=== PATIENT | female | born 1995 | race Caucasian/White ===

== ENCOUNTER → 2019-10-14 | Outpatient (CLI) | payer BC | END | disposition home or self-care (01) | LOC: LAB SHORT 14:45 → LAB 14:45 | DX: R30.0 Dysuria (principal) | CPT/HCPCS: 87077; 87086; 87186 ==

== ENCOUNTER → 2019-10-23 | Outpatient (CLI) | payer BC | END | disposition home or self-care (01) | LOC: LAB 12:05 → LAB SHORT 12:05 | PROVIDERS: Family Medicine | DX: Z34.01 Encounter for supervision of normal first pregnancy, first trimester (principal); Z3A.11 11 weeks gestation of pregnancy | CPT/HCPCS: G0123 ==

== ENCOUNTER → 2020-02-24 | Outpatient (CLI) | payer BC, OTHER ==
[2020-02-24 14:12] LABS: BASOPHILS ABSOLUTE AUTO 0.14 K/mm3 (0.00-0.23); BASOPHILS PERCENT AUTO 1 % (0-2); EOSINOPHILS ABSOLUTE AUTO 0.17 K/mm3 (0.00-0.68); EOSINOPHILS PERCENT AUTO 1 % (0-6); Hematocrit 36.2 % (33.0-51.0); IMMATURE GRAN ABSOLUTE AUTO 0.27 K/mm3 (0.00-0.10); IMMATURE GRAN PERCENT AUTO 2 % (0-1); LYMPHOCYTES ABSOLUTE AUTO 2.96 K/mm3 (0.84-5.20); LYMPHOCYTES PERCENT AUTO 17 % (21-46); MONOCYTES ABSOLUTE AUTO 0.93 K/mm3 (0.16-1.47); MONOCYTES PERCENT AUTO 5 % (4-13); Mean Corpuscular HGB Conc 33.1 g/dL (31.5-36.5); Mean Corpuscular Volume 94 fL (80-100); Mean Platelet Volume 10.7 fL (9.1-12.4); NEUTROPHILS ABSOLUTE AUTO 13.04 K/mm3 (1.96-9.15); NEUTROPHILS PERCENT AUTO 75 % (41-73); Platelet Count 320 K/mm3 (150-400); RDW Coefficient Variation 12.5 % (11.7-14.2); RDW Standard Deviation 42.9 fL (35.1-46.3); Red Blood Cell Count 3.87 M/mm3 (3.80-5.20); White Blood Cell Count 17.51 K/mm3 (4.00-11.30)
== END | disposition home or self-care (01) ==
LOC: LAB 12:45 → LAB SHORT 12:45
PROVIDERS: Family Medicine
DX: Z34.02 Encounter for supervision of normal first pregnancy, second trimester (principal); Z3A.27 27 weeks gestation of pregnancy
CPT/HCPCS: 82950; 85025; 87086

== ENCOUNTER → 2020-04-26 | Outpatient (CLI) | payer BC, OTHER ==
[~2020-04-26] MED LIST: DOCU100 PO; IBUP800 PO; PRENATAL TABLE1 EAC2 PO
== END | disposition home or self-care (01) ==
LOC: LAB 11:01 → LAB SHORT 11:01
DX: Z34.03 Encounter for supervision of normal first pregnancy, third trimester (principal); Z3A.36 36 weeks gestation of pregnancy
CPT/HCPCS: 87081; 87653

== ENCOUNTER 2020-06-02 16:35 | Emergency (ER) | payer BC, OTHER ==
[~2020-06-02] VITALS: Ht 162.6 cm; Wt 74.8 kg
== END 2020-06-02 18:50 | disposition home or self-care (01) ==
LOC: ER 16:35
DX: O90.89 Other complications of the puerperium, not elsewhere classified (principal); R07.9 Chest pain, unspecified; Z87.891 Personal history of nicotine dependence
CPT/HCPCS: 93005; 93010; 99283-25

== ENCOUNTER 2020-07-04 06:36 | Inpatient (IN) | payer BC, OTHER ==
[~2020-07-04] VITALS: Ht 167.6 cm; Wt 74.8 kg
[~2020-07-04 06:36] MED LIST changes: +IBUP600 PO; +KEFLEX500 MG PO; +ONDA4 PO
[2020-07-04 07:04] LABS: BASOPHILS ABSOLUTE AUTO 0.05 K/mm3 (0.00-0.23); BASOPHILS PERCENT AUTO 0 % (0-2); EOSINOPHILS PERCENT AUTO 1 % (0-6); Hematocrit 42.6 % (33.0-51.0); Hemoglobin 14.4 g/dL (11.5-16.0); IMMATURE GRAN ABSOLUTE AUTO 0.05 K/mm3 (0.00-0.10); IMMATURE GRAN PERCENT AUTO 0 % (0-1); LYMPHOCYTES ABSOLUTE AUTO 2.31 K/mm3 (0.84-5.20); LYMPHOCYTES PERCENT AUTO 16 % (21-46); MONOCYTES ABSOLUTE AUTO 1.15 K/mm3 (0.16-1.47); MONOCYTES PERCENT AUTO 8 % (4-13); Mean Corpuscular HGB 29.3 pg (26.0-34.0); Mean Corpuscular HGB Conc 33.8 g/dL (31.5-36.5); Mean Corpuscular Volume 87 fL (80-100); Mean Platelet Volume 10.4 fL (9.1-12.4); NEUTROPHILS ABSOLUTE AUTO 11.29 K/mm3 (1.96-9.15); NEUTROPHILS PERCENT AUTO 76 % (41-73); Platelet Count 343 K/mm3 (150-400); RDW Coefficient Variation 12.6 % (11.7-14.2); RDW Standard Deviation 39.5 fL (35.1-46.3); Red Blood Cell Count 4.92 M/mm3 (3.80-5.20); White Blood Cell Count 14.95 K/mm3 (4.00-11.30)
[2020-07-04 07:27] LABS: Alanine Aminotransfer (ALT/SGP 121 U/L (12-78); Albumin, Blood 3.5 g/dL (3.4-5.0); Albumin/Globulin Ratio 0.9 (0.8-1.8); Alk Phos 107 U/L (50-136); Anion Gap 9 mmol/L (6-16); Aspartate Aminotrans (AST/SGOT 203 U/L (12-37); Bilirubin, Total 1.8 mg/dL (0.1-1.0); Blood Urea Nitrogen 14 mg/dL (8-24); Bun/Creatinine Ratio 18.4 (12.0-20.0); CO2, Blood 22 mmol/L (21-32); Calcium, Blood 9.1 mg/dL (8.5-10.1); Chloride, Blood 109 mmol/L (98-108); Creatinine, Blood 0.76 mg/dL (0.40-1.00); Globulin, Blood 4.1 g/dL (2.2-4.0); Glomerular Filtration Rate >60 (60-); Glucose, Blood 127 mg/dL (70-99); Potassium, Blood 3.8 mmol/L (3.5-5.5); Sodium, Blood 140 mmol/L (136-145); Total Protein, Blood 7.6 g/dL (6.4-8.2)
[2020-07-04 08:35] LABS: Source, Urine Clean Catch
[2020-07-04 08:54] LABS: Appearance, Urine Clear (Clear); Bilirubin, Urine Neg (Neg); Blood, Urine Neg (Neg); Color, Urine Yellow (P-Yellow); Glucose Qualitative, Urine Neg (Neg); Ketones, Urine Neg (Neg); Leukocyte Esterase, Urine 1+ (Neg); Nitrite, Urine Neg (Neg); Protein, Urine 2+ (Neg); Specific Gravity, Urine 1.015 (1.003-1.022); Urobilinogen, Urine 1+ (Normal)
[2020-07-04 09:20] LABS: Red Blood Cells, Urine 0-2 /hpf (0-2); Squamous Epithelial Cells Few /hpf (Few)
[2020-07-04 09:21] LABS: Bacteria Few /hpf
--- NOTE | 2020-07-04 11:36 | NUR ---
ADMISSION: REPORT RECEIVED FROM ED RN. PT TO UNIT AT ABOUT 1120. PT IS DROWSY BUT ORIENTED. REPORTS TENDERNESS AND ACHY PAIN AT ABD. REPORTS PAIN TOLERABLE AT THIS TIME. DENIES N/V. VSS. WILL CTM
[2020-07-04 13:33] LABS: Magnesium, Blood 1.8 mg/dL (1.6-2.4); Phosphorus, Blood 3.3 mg/dL (2.5-4.9)
--- NOTE | 2020-07-04 18:25 | NUR ---
SUMMARY: NO ACUTE CHANGE SINCE ADMISSION. A/0, INDEP IN ROOM, VSS. PT HAS HAD INTERMITTANT NAUSEA AND PAIN. MEDICATIONS GIVEN, SEE EMAR. 1 BAG OF ORDERED NS GIVEN AND PT NOW SALINE LOCKED. NO SAFETY CONCERNS AT THIS TIME, WILL REPORT TO THADDEUS WATKINS.
[2020-07-05 04:42] LABS: BASOPHILS ABSOLUTE AUTO 0.08 K/mm3 (0.00-0.23); BASOPHILS PERCENT AUTO 0 % (0-2); EOSINOPHILS ABSOLUTE AUTO 0.06 K/mm3 (0.00-0.68); EOSINOPHILS PERCENT AUTO 0 % (0-6); Hematocrit 39.5 % (33.0-51.0); Hemoglobin 12.6 g/dL (11.5-16.0); IMMATURE GRAN ABSOLUTE AUTO 0.09 K/mm3 (0.00-0.10); IMMATURE GRAN PERCENT AUTO 0 % (0-1); LYMPHOCYTES ABSOLUTE AUTO 1.38 K/mm3 (0.84-5.20); LYMPHOCYTES PERCENT AUTO 7 % (21-46); MONOCYTES ABSOLUTE AUTO 0.96 K/mm3 (0.16-1.47); MONOCYTES PERCENT AUTO 5 % (4-13); Mean Corpuscular HGB Conc 31.9 g/dL (31.5-36.5); Mean Corpuscular Volume 91 fL (80-100); Mean Platelet Volume 10.3 fL (9.1-12.4); NEUTROPHILS ABSOLUTE AUTO 17.71 K/mm3 (1.96-9.15); NEUTROPHILS PERCENT AUTO 87 % (41-73); Platelet Count 311 K/mm3 (150-400); RDW Coefficient Variation 13.2 % (11.7-14.2); RDW Standard Deviation 43.6 fL (35.1-46.3); Red Blood Cell Count 4.35 M/mm3 (3.80-5.20); White Blood Cell Count 20.28 K/mm3 (4.00-11.30)
[2020-07-05 05:05] LABS: Alanine Aminotransfer (ALT/SGP 64 U/L (12-78); Albumin, Blood 2.8 g/dL (3.4-5.0); Albumin/Globulin Ratio 0.8 (0.8-1.8); Alk Phos 80 U/L (50-136); Anion Gap 7 mmol/L (6-16); Aspartate Aminotrans (AST/SGOT 35 U/L (12-37); Bilirubin, Total 1.4 mg/dL (0.1-1.0); Blood Urea Nitrogen 13 mg/dL (8-24); Bun/Creatinine Ratio 16.8 (12.0-20.0); CHOL/HDL RATIO 2.7; CO2, Blood 24 mmol/L (21-32); Calcium, Blood 7.8 mg/dL (8.5-10.1); Chloride, Blood 113 mmol/L (98-108); Cholesterol 114 mg/dL (50-200); Creatinine, Blood 0.78 mg/dL (0.40-1.00); Globulin, Blood 3.4 g/dL (2.2-4.0); Glomerular Filtration Rate >60 (60-); Glucose, Blood 102 mg/dL (70-99); HDL Cholesterol 43 mg/dL (>39); LDL/HDL RATIO 1.5; Low Density Lipoprotein Chol 64 mg/dL (0-110); Potassium, Blood 4.4 mmol/L (3.5-5.5); Sodium, Blood 144 mmol/L (136-145); Total Protein, Blood 6.2 g/dL (6.4-8.2); Triglycerides 36 mg/dL (30-140); Very Low Density Lipoprot Chol 7 mg/dL (6-28)
--- NOTE | 2020-07-05 06:16 | NUR ---
PT HR TACHY 120'S THIS AM, PT DENIED CP/PRESSURE; OTHER VSS. PT CONT TO STRUGGLE W/PAIN AND NAUSEA T/O NIGHT. PT C/O UPPER ABD PAIN AND BACK PAIN. ABD SOFT TO PALP, NO EMESIS THIS SHIFT. PAIN AND NAUSEA MGD PER EMAR. PT NPO PER ORDERS. PT VOIDING PAVITHRA URINE. IVF CONT PER ORDERS.
[2020-07-05 10:57] LABS: BASOPHILS ABSOLUTE AUTO 0.08 K/mm3 (0.00-0.23); BASOPHILS PERCENT AUTO 0 % (0-2); EOSINOPHILS ABSOLUTE AUTO 0.12 K/mm3 (0.00-0.68); EOSINOPHILS PERCENT AUTO 1 % (0-6); Hematocrit 37.3 % (33.0-51.0); Hemoglobin 12.1 g/dL (11.5-16.0); IMMATURE GRAN ABSOLUTE AUTO 0.06 K/mm3 (0.00-0.10); IMMATURE GRAN PERCENT AUTO 0 % (0-1); LYMPHOCYTES ABSOLUTE AUTO 1.76 K/mm3 (0.84-5.20); LYMPHOCYTES PERCENT AUTO 10 % (21-46); MONOCYTES ABSOLUTE AUTO 0.92 K/mm3 (0.16-1.47); MONOCYTES PERCENT AUTO 5 % (4-13); Mean Corpuscular HGB 29.4 pg (26.0-34.0); Mean Corpuscular HGB Conc 32.4 g/dL (31.5-36.5); Mean Corpuscular Volume 91 fL (80-100); Mean Platelet Volume 10.2 fL (9.1-12.4); NEUTROPHILS ABSOLUTE AUTO 15.09 K/mm3 (1.96-9.15); NEUTROPHILS PERCENT AUTO 84 % (41-73); Platelet Count 271 K/mm3 (150-400); RDW Coefficient Variation 13.2 % (11.7-14.2); RDW Standard Deviation 43.4 fL (35.1-46.3); Red Blood Cell Count 4.12 M/mm3 (3.80-5.20); White Blood Cell Count 18.03 K/mm3 (4.00-11.30)
[2020-07-05 11:16] LABS: Alanine Aminotransfer (ALT/SGP 51 U/L (12-78); Albumin, Blood 2.4 g/dL (3.4-5.0); Albumin/Globulin Ratio 0.8 (0.8-1.8); Alk Phos 70 U/L (50-136); Anion Gap 6 mmol/L (6-16); Aspartate Aminotrans (AST/SGOT 21 U/L (12-37); Bilirubin, Total 1.2 mg/dL (0.1-1.0); Blood Urea Nitrogen 10 mg/dL (8-24); Bun/Creatinine Ratio 12.3 (12.0-20.0); CO2, Blood 24 mmol/L (21-32); Chloride, Blood 113 mmol/L (98-108); Creatinine, Blood 0.81 mg/dL (0.40-1.00); Globulin, Blood 3.2 g/dL (2.2-4.0); Glomerular Filtration Rate >60 (60-); Glucose, Blood 110 mg/dL (70-99); Potassium, Blood 4.1 mmol/L (3.5-5.5); Sodium, Blood 143 mmol/L (136-145); Total Protein, Blood 5.6 g/dL (6.4-8.2)
--- NOTE | 2020-07-05 18:41 | NUR ---
SUMMARY: NO ACUTE CHANGE TODAY. PT CONTINUES TO C/O PAIN AND NAUSEA INTERMITTANTLY. MEDICATED PER EMAR. INDEP IN ROOM, VSS, A/O. WILL CTM AND REPORT TO NOC RN
--- NOTE | 2020-07-05 20:05 | NUR ---
PT FOUND TO HAVE RASH ON BILATERAL SHOULDERS, RIGHT BREAST AND RIGHT CHEEK. PT DENIES SOB OR ITCHING. IV LEVAQUIN RUNNING PER ORDERS. CALL PLACED TO DR DAMON, PT VITALS, EKG, MEDS AND RASH REVIEWED. NEW ORDER FOR BENADRYL REC. NEW TELE AND IV BOLUS ORDERS REC-SEE NURSE NOTIFY ORDERS.
--- NOTE | 2020-07-05 21:53 | NUR ---
500ML BOLUS COMPLETED, HR 124.
--- NOTE | 2020-07-06 00:01 | NUR ---
HR 120. SECOND 500ML BOLUS STARTED.
[2020-07-06 04:42] LABS: BASOPHILS ABSOLUTE AUTO 0.06 K/mm3 (0.00-0.23); BASOPHILS PERCENT AUTO 0 % (0-2); EOSINOPHILS ABSOLUTE AUTO 0.22 K/mm3 (0.00-0.68); EOSINOPHILS PERCENT AUTO 1 % (0-6); Hemoglobin 11.9 g/dL (11.5-16.0); IMMATURE GRAN ABSOLUTE AUTO 0.07 K/mm3 (0.00-0.10); IMMATURE GRAN PERCENT AUTO 1 % (0-1); LYMPHOCYTES ABSOLUTE AUTO 1.91 K/mm3 (0.84-5.20); LYMPHOCYTES PERCENT AUTO 12 % (21-46); MONOCYTES ABSOLUTE AUTO 0.93 K/mm3 (0.16-1.47); MONOCYTES PERCENT AUTO 6 % (4-13); Mean Corpuscular HGB 29.1 pg (26.0-34.0); Mean Corpuscular HGB Conc 32.2 g/dL (31.5-36.5); Mean Corpuscular Volume 91 fL (80-100); Mean Platelet Volume 10.3 fL (9.1-12.4); NEUTROPHILS ABSOLUTE AUTO 12.26 K/mm3 (1.96-9.15); NEUTROPHILS PERCENT AUTO 79 % (41-73); Platelet Count 253 K/mm3 (150-400); RDW Coefficient Variation 13.2 % (11.7-14.2); RDW Standard Deviation 43.2 fL (35.1-46.3); Red Blood Cell Count 4.09 M/mm3 (3.80-5.20); White Blood Cell Count 15.45 K/mm3 (4.00-11.30)
[2020-07-06 05:00] LABS: Alanine Aminotransfer (ALT/SGP 38 U/L (12-78); Albumin, Blood 2.2 g/dL (3.4-5.0); Albumin/Globulin Ratio 0.6 (0.8-1.8); Alk Phos 63 U/L (50-136); Anion Gap 6 mmol/L (6-16); Aspartate Aminotrans (AST/SGOT 12 U/L (12-37); Bilirubin, Total 1.1 mg/dL (0.1-1.0); Blood Urea Nitrogen 9 mg/dL (8-24); Bun/Creatinine Ratio 11.2 (12.0-20.0); CO2, Blood 25 mmol/L (21-32); Calcium, Blood 8.2 mg/dL (8.5-10.1); Chloride, Blood 109 mmol/L (98-108); Creatinine, Blood 0.81 mg/dL (0.40-1.00); Globulin, Blood 3.4 g/dL (2.2-4.0); Glomerular Filtration Rate >60 (60-); Glucose, Blood 84 mg/dL (70-99); Potassium, Blood 3.5 mmol/L (3.5-5.5); Sodium, Blood 140 mmol/L (136-145); Total Protein, Blood 5.6 g/dL (6.4-8.2)
--- NOTE | 2020-07-06 07:33 | NUR ---
PT BP AND HR REMAINED ELEVATED T/O NIGHT. HR TRENDING 120'S PER TELE MONITOR. PT DENIED CP/PREUUSRE, DOES C/O UPPER ABD AND RIGHT SHOULDER PAIN. EKG COMPLETED, MD NOTIFIED OF READING. 500ML BOLUS COMPLETED X2 W/NO CHANGE IN HR. PT REP LESS NAUSEA, STATES PAIN BETTER MGD W/MORPHINE VS FENTANYL. PT STATES TORADOL WAS MOST EFFECTIVE. RASH RESOLVED. PT REP OCC BLADDER CRAMPING/SPASMS AFTER VOIDING, URINE PAVITHRA COLORED. IVF CONT PER ORDERS.
--- NOTE | 2020-07-06 13:45 | NUR ---
pt out of the shower before shower biox 96-97% ra after shower biox 93-94% some sob with the acitivty will leave pt off oxygen
--- NOTE | 2020-07-06 16:30 | NUR ---
inc cp placed back on oxygen for comfort earlier pt given fent dr ramos called lasix 20 mg po x 1 now ordered
--- NOTE | 2020-07-06 17:35 | NUR ---
PT UP TO [employer]ANT CALLED HR WITH [employer] WENT TO 150 PT VOIDED 400 ML WILL SAGE
[2020-07-07 04:18] LABS: BASOPHILS ABSOLUTE AUTO 0.06 K/mm3 (0.00-0.23); BASOPHILS PERCENT AUTO 0 % (0-2); EOSINOPHILS ABSOLUTE AUTO 0.16 K/mm3 (0.00-0.68); EOSINOPHILS PERCENT AUTO 1 % (0-6); Hematocrit 34.4 % (33.0-51.0); Hemoglobin 11.2 g/dL (11.5-16.0); IMMATURE GRAN PERCENT AUTO 1 % (0-1); LYMPHOCYTES ABSOLUTE AUTO 2.76 K/mm3 (0.84-5.20); LYMPHOCYTES PERCENT AUTO 15 % (21-46); MONOCYTES ABSOLUTE AUTO 1.58 K/mm3 (0.16-1.47); MONOCYTES PERCENT AUTO 9 % (4-13); Mean Corpuscular HGB 29.1 pg (26.0-34.0); Mean Corpuscular HGB Conc 32.6 g/dL (31.5-36.5); Mean Corpuscular Volume 89 fL (80-100); NEUTROPHILS ABSOLUTE AUTO 13.25 K/mm3 (1.96-9.15); NEUTROPHILS PERCENT AUTO 74 % (41-73); Platelet Count 252 K/mm3 (150-400); RDW Coefficient Variation 13.1 % (11.7-14.2); RDW Standard Deviation 42.7 fL (35.1-46.3); Red Blood Cell Count 3.85 M/mm3 (3.80-5.20); White Blood Cell Count 18.01 K/mm3 (4.00-11.30)
[2020-07-07 04:47] LABS: Alanine Aminotransfer (ALT/SGP 27 U/L (12-78); Albumin, Blood 2.3 g/dL (3.4-5.0); Albumin/Globulin Ratio 0.6 (0.8-1.8); Alk Phos 55 U/L (50-136); Anion Gap 8 mmol/L (6-16); Aspartate Aminotrans (AST/SGOT 9 U/L (12-37); Bilirubin, Total 1.4 mg/dL (0.1-1.0); Blood Urea Nitrogen 9 mg/dL (8-24); Bun/Creatinine Ratio 10.2 (12.0-20.0); CO2, Blood 27 mmol/L (21-32); Calcium, Blood 8.3 mg/dL (8.5-10.1); Chloride, Blood 103 mmol/L (98-108); Creatinine, Blood 0.88 mg/dL (0.40-1.00); Globulin, Blood 3.7 g/dL (2.2-4.0); Glomerular Filtration Rate >60 (60-); Glucose, Blood 87 mg/dL (70-99); Potassium, Blood 3.2 mmol/L (3.5-5.5); Sodium, Blood 138 mmol/L (136-145)
[2020-07-07 05:18] LABS: C-Reactive Protein, High Sens. >190.000 mg/L (0.000-3.000)
--- NOTE | 2020-07-07 05:32 | NUR ---
SHIFT SUMMARY: NADINE IS A&OX4. SHE REMAINS NPO. VS W/CONTINUED TACHYCARDIA IN THE 120's. LIPASE IMPROVING FROM 1536 TO 444. SHE REPORTS THAT THE NAUSEA IS IMPROVING AND THAT SHE IS OBTAINING REASONABLE PAIN CONTROL WITH THE USE OF MORPHINE AND FENTANYL. SHE IS INDEPENDENT TO THE BATHROOM. IV TO R AC PATENT. SHE IS ABLE TO MAKE HER NEEDS KNOWN. SHE IS LYING IN BED WITH THE CALL LIGHT IN REACH. WILL REPORT TO DAY SHIFT RN.
--- NOTE | 2020-07-07 18:29 | NUR ---
SHIFT SUMMARY PT A&OX4, RA, TELE NSR @ 140 CURRENTLY ( AWARE), PAIN MANAGED WITH MORPHINE AND FENTANYL, AMBULATING SBA TO BRP, SITTING ON SIDE OF BED, TCDB EDU/ENC /DEMONSTRATED. VOIDING WELL, MENSTRUATION CYCLE BEGAN TODAY. MANJEET PO SIPS & CHIPS. ABX INFUSED ORDERED PER EMAR. WILL REPORT TO ONCOMING NOC RN.
--- NOTE | 2020-07-08 01:31 | NUR ---
NADINE NOTIFIED THIS NURSE THAT SHE FELT ITCHY ON HER LLE AND WHEN SHE SCRATCHED IT SHE NOTICED THAT IT FELT "BUMPY". SHE STATES THAT IT FEELS LIKE A BRUISE. UPON EXAM, ADDITIONAL AREAS OF REDNESS AND INDURATION WERE FOUND ON THE RLE ALSO. THE AREA ON THE LEFT SCHUMACHER MEASURES 6.25 X 3.5 CM. THE RLE HAS A CHAIN OF 5 LESIONS WHICH AREA 10 CM IN TOTAL WITH THE LARGEST LESION MEASURING [address] ALVARADOIED.
[2020-07-08 03:54] LABS: BASOPHILS ABSOLUTE AUTO 0.06 K/mm3 (0.00-0.23); BASOPHILS PERCENT AUTO 0 % (0-2); EOSINOPHILS ABSOLUTE AUTO 0.26 K/mm3 (0.00-0.68); EOSINOPHILS PERCENT AUTO 2 % (0-6); IMMATURE GRAN ABSOLUTE AUTO 0.14 K/mm3 (0.00-0.10); IMMATURE GRAN PERCENT AUTO 1 % (0-1); LYMPHOCYTES ABSOLUTE AUTO 2.95 K/mm3 (0.84-5.20); LYMPHOCYTES PERCENT AUTO 17 % (21-46); MONOCYTES ABSOLUTE AUTO 1.71 K/mm3 (0.16-1.47); MONOCYTES PERCENT AUTO 10 % (4-13); Mean Corpuscular HGB 28.3 pg (26.0-34.0); Mean Corpuscular HGB Conc 32.3 g/dL (31.5-36.5); Mean Corpuscular Volume 88 fL (80-100); NEUTROPHILS ABSOLUTE AUTO 12.68 K/mm3 (1.96-9.15); NEUTROPHILS PERCENT AUTO 71 % (41-73); Platelet Count 241 K/mm3 (150-400); RDW Coefficient Variation 12.8 % (11.7-14.2); RDW Standard Deviation 41.1 fL (35.1-46.3); Red Blood Cell Count 3.53 M/mm3 (3.80-5.20)
[2020-07-08 04:20] LABS: Alanine Aminotransfer (ALT/SGP 17 U/L (12-78); Albumin, Blood 1.9 g/dL (3.4-5.0); Albumin/Globulin Ratio 0.5 (0.8-1.8); Alk Phos 47 U/L (50-136); Anion Gap 7 mmol/L (6-16); Aspartate Aminotrans (AST/SGOT 7 U/L (12-37); Bilirubin, Total 0.9 mg/dL (0.1-1.0); Blood Urea Nitrogen 9 mg/dL (8-24); Bun/Creatinine Ratio 11.1 (12.0-20.0); CO2, Blood 26 mmol/L (21-32); Calcium, Blood 8.2 mg/dL (8.5-10.1); Chloride, Blood 104 mmol/L (98-108); Creatinine, Blood 0.81 mg/dL (0.40-1.00); Globulin, Blood 3.6 g/dL (2.2-4.0); Glomerular Filtration Rate >60 (60-); Glucose, Blood 94 mg/dL (70-99); Potassium, Blood 3.5 mmol/L (3.5-5.5); Sodium, Blood 137 mmol/L (136-145); Total Protein, Blood 5.5 g/dL (6.4-8.2)
[2020-07-08 04:24] LABS: C-Reactive Protein, High Sens. >190.000 mg/L (0.000-3.000)
--- NOTE | 2020-07-08 06:17 | NUR ---
SHIFT SUMMARY: NADINE IS A&O X4. O2 MAINTAINING ABOVE 90% ON 2 L VIA NC. TELE IN PLACE, PT REMAINS TACHY WITH SPIKES UP TO 160 ON AMBULATION. SHE WAS MADE NPO AT 0530, ONLY TAKING IN SIPS OF WATER AND CHIPS OF ICE PRIOR TO THAT TIME. IV TO L AC PATENT. SHE IS INDEPENDENT TO THE BATHROOM. DB&C AND AMBULATION STRONGLY ENCOURAGED THIS SHIFT. SHE REPORTS ADEQUATE PAIN CONTROL WITH THE CURRENT MEDICATIONS. URINE TINGED WITH BLOOD D/T MENSTRATION. SHE USES HER CALL LIGHT APPROPRIATELY. DISCUSSED PLAN FOR SURGERY TODAY. SHE IS LYING IN BED WITH HER CALL LIGHT IN REACH. WILL REPORT TO DAY SHIFT RN.
--- NOTE | 2020-07-08 11:47 | NUR ---
STATES HER ABDOMINAL PAIN IS TOLERABLE. REPORTS NAUSEA IMPROVED SINCE GIVEN ANTIEMETIC.
--- NOTE | 2020-07-08 12:39 | NUR ---
07/08/20 1239 Dora Burnette PT ON SCHEDULED ABX.
--- NOTE | 2020-07-08 15:59 | NUR ---
SHIFT SUMMARY PT A&OX4, VSS, TELE NSR ST @ 112 BPM, S/P LAP SLY, 4 STERIS CDI, EDU & ENC SPLINTING, TCDB, I.S. MANJEET PO SIPS/CHIPS. DENIES PAIN AT THIS TIME. WILL REPORT TO ONCOMING NOC RN.
--- NOTE | 2020-07-09 06:31 | NUR ---
SUMMARY PT VOIDING WITHOUT DIFF.ON MENSES.HAD LOOSE BM.TOLERAING JELLO AND PUDDING
[2020-07-09 08:17] LABS: Hematocrit 31.1 % (33.0-51.0); Hemoglobin 10.3 g/dL (11.5-16.0); Mean Corpuscular HGB 28.8 pg (26.0-34.0); Mean Corpuscular HGB Conc 33.1 g/dL (31.5-36.5); Mean Corpuscular Volume 87 fL (80-100); Mean Platelet Volume 9.9 fL (9.1-12.4); Platelet Count 291 K/mm3 (150-400); RDW Coefficient Variation 12.9 % (11.7-14.2); RDW Standard Deviation 41.3 fL (35.1-46.3); Red Blood Cell Count 3.58 M/mm3 (3.80-5.20); White Blood Cell Count 18.16 K/mm3 (4.00-11.30)
[2020-07-09 08:37] LABS: Alanine Aminotransfer (ALT/SGP 36 U/L (12-78); Albumin, Blood 1.9 g/dL (3.4-5.0); Albumin/Globulin Ratio 0.5 (0.8-1.8); Alk Phos 56 U/L (50-136); Anion Gap 7 mmol/L (6-16); Aspartate Aminotrans (AST/SGOT 34 U/L (12-37); Bilirubin, Total 0.4 mg/dL (0.1-1.0); Blood Urea Nitrogen 7 mg/dL (8-24); Bun/Creatinine Ratio 10.7 (12.0-20.0); CO2, Blood 26 mmol/L (21-32); Calcium, Blood 8.9 mg/dL (8.5-10.1); Chloride, Blood 109 mmol/L (98-108); Creatinine, Blood 0.65 mg/dL (0.40-1.00); Globulin, Blood 4.1 g/dL (2.2-4.0); Glomerular Filtration Rate >60 (60-); Glucose, Blood 153 mg/dL (70-99); Potassium, Blood 3.9 mmol/L (3.5-5.5); Sodium, Blood 142 mmol/L (136-145)
[2020-07-09 08:42] LABS: BAND PERCENT MAN 4 % (0-8); BASOPHILS PERCENT MAN 0 % (0-2); EOSINOPHILS PERCENT MAN 0 % (0-6); LYMPHOCYTES ABSOLUTE MAN 1.27 K/mm3 (0.84-5.20); LYMPHOCYTES PERCENT MAN 7 % (21-46); MONOCYTES PERCENT MAN 5 % (4-13); NEUTROPHILS ABSOLUTE MAN 15.98 K/mm3 (1.96-9.15); SEG NEUTROPHILS PERCENT MAN 84 % (41-73); TOTAL CELLS COUNTED 100
[2020-07-09] MEDS ORDERED: IBUP800 PO (15:38)
[2020-07-09] MEDS ORDERED: ONDA4 PO (15:39)
[2020-07-09] MEDS ORDERED: ACET325 (15:42)
[2020-07-09] MEDS ORDERED: Norco 5-325 Ta1 EACH PO (15:43)
--- NOTE | 2020-07-09 16:45 | NUR ---
DISCHARGE: PACKET PRINTED AND PT EDUCATED. PT GIVEN SCRIPTS. LEFT UNIT ON FOOT WITH AT ABOUT 1600
== END 2020-07-09 16:07 | disposition home or self-care (01) | DRG 418 ==
LOC: ER 06:36 → SURS 09:48 → MEDS 09:48 → SURS 10:53
PROVIDERS: Emergency Medicine; Surgery; ADMIT Family Medicine
PROC: 0FT44ZZ Resection of Gallbladder, Percutaneous Endoscopic Approach (ICD-10-PCS; principal; 2020-07-08 12:15)
PROC: BF14YZZ Fluoroscopy of Gallbladder, Bile Ducts and Pancreatic Ducts using Other Contrast (ICD-10-PCS; 2020-07-08 12:15)
DX: K85.10 Biliary acute pancreatitis without necrosis or infection (principal); N39.0 Urinary tract infection, site not specified; Z87.891 Personal history of nicotine dependence; N26.1 Atrophy of kidney (terminal)
CPT/HCPCS: 36415; 71260; 74177; 74300; 76705; 80053; 80061; 81001; 81025; 82330; 83605; 83690; 83735; 84100; 84145; 84443; 85007; 85025; 85027; 86141; 87086; 93005; 93010; 96374; 96375; 99285-25; A9270; A9270-GY; C1729; C9113; J1100; J1200; J1650; J1885; J1940; J1956; J2250; J2270; J2405; J2543; J2550; J2704; J3010; J3480; J7030; J7050; J7120; Q9967; U0003

== ENCOUNTER 2021-02-09 04:21 | Emergency (ER) | payer BC, OTHER ==
[~2021-02-09] VITALS: Ht 167.6 cm; Wt 77.1 kg
[~2021-02-09 04:21] MED LIST changes: +ACET325; +Norco 5-325 Ta1 EACH PO
== END 2021-02-09 05:58 | disposition home or self-care (01) ==
LOC: ER 04:21
DX: S46.912A Strain of unspecified muscle, fascia and tendon at shoulder and upper arm level, left arm, initial encounter (principal); Z87.891 Personal history of nicotine dependence; X58.XXXA Exposure to other specified factors, initial encounter; Y93.89 Activity, other specified; Y92.89 Other specified places as the place of occurrence of the external cause; Y99.0 Civilian activity done for income or pay
CPT/HCPCS: 99283; A9270

== ENCOUNTER 2021-02-10 04:28 | Emergency (ER) | payer BC, OTHER ==
[~2021-02-10] VITALS: Ht 167.6 cm; Wt 79.4 kg
== END 2021-02-10 04:56 | disposition home or self-care (01) ==
LOC: ER 04:28
DX: R51.9 Headache, unspecified (principal); R53.83 Other fatigue; T50.B95A Adverse effect of other viral vaccines, initial encounter; Z87.891 Personal history of nicotine dependence
CPT/HCPCS: 99282

== ENCOUNTER 2021-04-01 12:03 | Emergency (ER) | payer BC, OTHER ==
[~2021-04-01] VITALS: Ht 167.6 cm; Wt 78.9 kg
[2021-04-01 13:16] LABS: BASOPHILS PERCENT AUTO 1 % (0-2); EOSINOPHILS ABSOLUTE AUTO 0.25 K/mm3 (0.00-0.68); EOSINOPHILS PERCENT AUTO 3 % (0-6); Hematocrit 41.6 % (33.0-51.0); Hemoglobin 14.1 g/dL (11.5-16.0); IMMATURE GRAN ABSOLUTE AUTO 0.02 K/mm3 (0.00-0.10); IMMATURE GRAN PERCENT AUTO 0 % (0-1); LYMPHOCYTES ABSOLUTE AUTO 3.43 K/mm3 (0.84-5.20); LYMPHOCYTES PERCENT AUTO 39 % (21-46); MONOCYTES ABSOLUTE AUTO 0.74 K/mm3 (0.16-1.47); MONOCYTES PERCENT AUTO 8 % (4-13); Mean Corpuscular HGB 28.5 pg (26.0-34.0); Mean Corpuscular HGB Conc 33.9 g/dL (31.5-36.5); Mean Corpuscular Volume 84 fL (80-100); Mean Platelet Volume 10.5 fL (9.1-12.4); NEUTROPHILS ABSOLUTE AUTO 4.26 K/mm3 (1.96-9.15); NEUTROPHILS PERCENT AUTO 49 % (41-73); Platelet Count 316 K/mm3 (150-400); RDW Coefficient Variation 12.8 % (11.7-14.2); Red Blood Cell Count 4.94 M/mm3 (3.80-5.20)
[2021-04-01 13:34] LABS: Alanine Aminotransfer (ALT/SGP 22 U/L (12-78); Albumin, Blood 3.9 g/dL (3.4-5.0); Alk Phos 57 U/L (50-136); Anion Gap 2 mmol/L (6-16); Aspartate Aminotrans (AST/SGOT 9 U/L (12-37); Bilirubin, Total 0.6 mg/dL (0.1-1.0); Blood Urea Nitrogen 13 mg/dL (8-24); Bun/Creatinine Ratio 15.3 (12.0-20.0); CO2, Blood 29 mmol/L (21-32); Calcium, Blood 9.5 mg/dL (8.5-10.1); Chloride, Blood 109 mmol/L (98-108); Creatinine, Blood 0.85 mg/dL (0.40-1.00); Globulin, Blood 3.9 g/dL (2.2-4.0); Glomerular Filtration Rate >60 (60-); Glucose, Blood 69 mg/dL (70-99); Potassium, Blood 4.5 mmol/L (3.5-5.5); Sodium, Blood 140 mmol/L (136-145); Total Protein, Blood 7.8 g/dL (6.4-8.2)
[2021-04-01 13:50] LABS: Source, Urine Clean Catch
[2021-04-01 14:03] LABS: Appearance, Urine Cloudy (Clear); Bilirubin, Urine Neg (Neg); Blood, Urine 5+ (Neg); Color, Urine Red (P-Yellow); Glucose Qualitative, Urine Neg (Neg); Ketones, Urine Neg (Neg); Leukocyte Esterase, Urine 2+ (Neg); Nitrite, Urine Neg (Neg); Protein, Urine 3+ (Neg); Urobilinogen, Urine NORM (Normal)
[2021-04-01 14:18] LABS: Bacteria Mod /hpf; Red Blood Cells, Urine TNTC /hpf (0-2); Squamous Epithelial Cells Mod /hpf (Few)
== END 2021-04-01 15:17 | disposition home or self-care (01) ==
LOC: ER 12:03
PROVIDERS: Emergency Medicine; Physician Assistant
DX: N94.6 Dysmenorrhea, unspecified (principal); N83.202 Unspecified ovarian cyst, left side; Z87.891 Personal history of nicotine dependence
CPT/HCPCS: 36415; 76830; 76856; 80053; 81001; 81025; 85025; 87086; 99284-25

== ENCOUNTER 2021-08-02 11:28 | Emergency (ER) | payer BC, OTHER ==
[~2021-08-02] VITALS: Ht 170.2 cm; Wt 79.4 kg
[2021-08-02] MEDS ORDERED: PENVK500 PO (12:12)
[2021-08-02] MEDS ORDERED: NORCO 7.5-3251 EAC1 PO (12:12)
== END 2021-08-02 12:18 | disposition home or self-care (01) ==
LOC: ER 11:28
DX: K02.9 Dental caries, unspecified (principal); K05.10 Chronic gingivitis, plaque induced; K01.1 Impacted teeth; Z87.891 Personal history of nicotine dependence
CPT/HCPCS: 99282; A9270

== ENCOUNTER 2021-10-21 09:15 | Emergency (ER) | payer BC, OTHER ==
[~2021-10-21] VITALS: Ht 172.7 cm; Wt 86.2 kg
[~2021-10-21 09:15] MED LIST changes: +NORCO 7.5-3251 EAC1 PO; +PENVK500 PO
[2021-10-21] MEDS ORDERED: CYCL10 PO (10:58)
[2021-10-21] MEDS ORDERED: Naprosyn500 MG PO (10:58)
== END 2021-10-21 11:11 | disposition home or self-care (01) ==
LOC: ER 09:15
DX: S16.1XXA Strain of muscle, fascia and tendon at neck level, initial encounter (principal); M62.838 Other muscle spasm; X58.XXXA Exposure to other specified factors, initial encounter
CPT/HCPCS: 99283

== ENCOUNTER 2022-03-14 19:16 | Emergency (ER) | payer OTHER ==
[~2022-03-14] VITALS: Ht 170.2 cm; Wt 83.9 kg
[~2022-03-14 19:16] MED LIST changes: +CYCL10 PO; +Naprosyn500 MG PO
[2022-03-14 20:45] LABS: Influenza A, PCR NEGATIVE (NEGATIVE); Influenza B, PCR NEGATIVE (NEGATIVE); Resp Syncytial Virus, PCR NEGATIVE (NEGATIVE)
[2022-03-14 21:11] LABS: SARS-Cov-2 (COVID-19) PCR, MMC POSITIVE (NEGATIVE)
== END 2022-03-14 23:10 | disposition home or self-care (01) ==
LOC: ER 19:16
PROVIDERS: Physician Assistant
DX: U07.1 COVID-19 (principal); Z79.899 Other long term (current) drug therapy
CPT/HCPCS: 0241U; J1885

== ENCOUNTER 2022-11-12 08:46 | Emergency (ER) | payer OTHER, BC ==
[~2022-11-12] VITALS: Ht 152.4 cm; Wt 90.7 kg
[2022-11-12 09:35] LABS: BASOPHILS ABSOLUTE AUTO 0.06 K/mm3 (0.00-0.23); BASOPHILS PERCENT AUTO 0 % (0-2); EOSINOPHILS ABSOLUTE AUTO 0.02 K/mm3 (0.00-0.68); EOSINOPHILS PERCENT AUTO 0 % (0-6); Hematocrit 44.4 % (33.0-51.0); Hemoglobin 15.9 g/dL (11.5-16.0); IMMATURE GRAN ABSOLUTE AUTO 0.09 K/mm3 (0.00-0.10); IMMATURE GRAN PERCENT AUTO 0 % (0-1); LYMPHOCYTES ABSOLUTE AUTO 0.72 K/mm3 (0.84-5.20); LYMPHOCYTES PERCENT AUTO 4 % (21-46); MONOCYTES ABSOLUTE AUTO 0.95 K/mm3 (0.16-1.47); MONOCYTES PERCENT AUTO 5 % (4-13); Mean Corpuscular HGB 30.1 pg (26.0-34.0); Mean Corpuscular HGB Conc 35.8 g/dL (31.5-36.5); Mean Corpuscular Volume 84 fL (80-100); Mean Platelet Volume 10.6 fL (9.1-12.4); NEUTROPHILS PERCENT AUTO 91 % (41-73); Platelet Count 298 K/mm3 (150-400); RDW Coefficient Variation 12.2 % (11.7-14.2); RDW Standard Deviation 37.2 fL (35.1-46.3); Red Blood Cell Count 5.28 M/mm3 (3.80-5.20); White Blood Cell Count 20.34 K/mm3 (4.00-11.30)
[2022-11-12 10:02] LABS: Albumin, Blood 3.8 g/dL (3.4-5.0); Albumin/Globulin Ratio 0.8 (0.8-1.8); Bilirubin, Total 1.6 mg/dL (0.1-1.0); Bun/Creatinine Ratio 21.6 (12.0-20.0); Creatinine, Blood 0.74 mg/dL (0.40-1.00); Globulin, Blood 4.5 g/dL (2.2-4.0); Potassium, Blood 4.7 mmol/L (3.5-5.5); Total Protein, Blood 8.3 g/dL (6.4-8.2)
[2022-11-12 10:51] LABS: Source, Urine Clean Catch
[2022-11-12 10:57] LABS: Bilirubin, Urine Neg (Neg); Blood, Urine 2+ (Neg); Glucose Qualitative, Urine Neg (Neg); Ketones, Urine 1+ (Neg); Leukocyte Esterase, Urine Neg (Neg); Nitrite, Urine Neg (Neg); Protein, Urine Neg (Neg); Urobilinogen, Urine NORM (Normal)
[2022-11-12 11:05] LABS: Appearance, Urine Hazy (Clear); Color, Urine Yellow (P-Yellow)
[2022-11-12 11:08] LABS: Bacteria Mod /hpf; Squamous Epithelial Cells Many /hpf (Few)
[2022-11-12] MEDS ORDERED: ONDA4ODT MM (11:08)
== END 2022-11-12 11:23 | disposition home or self-care (01) ==
LOC: ER 08:46
PROVIDERS: Emergency Medicine
DX: K52.9 Noninfective gastroenteritis and colitis, unspecified (principal); Z79.899 Other long term (current) drug therapy
CPT/HCPCS: 36415; 80053; 81001; 83690; 84703; 85025; 87077; 87086; 87186; J2405; J7030